=== PATIENT | female | born 1975 | race Caucasian/White ===

== ENCOUNTER 2021-05-24 02:17 | Emergency (ER) | payer OTHER ==
[~2021-05-24] VITALS: Ht 157.5 cm; Wt 75.0 kg
[2021-05-24] MEDS ORDERED: PERTUSS(ACELL),DIPH,TET VAC/PF 0.5 ML SYRINGE IM. ONE (03:30)
[2021-05-24 05:00] VITALS: BP 129/78
== END 2021-05-24 06:42 | disposition home or self-care (01) ==
LOC: EMS 02:21
DX: S01.83XA Puncture wound without foreign body of other part of head, initial encounter (principal); F17.210 Nicotine dependence, cigarettes, uncomplicated; Y08.89XA Assault by other specified means, initial encounter; Y93.89 Activity, other specified; Y92.89 Other specified places as the place of occurrence of the external cause; Y99.8 Other external cause status
CPT/HCPCS: 70450; 72125; 90471; 90715; 99285